=== PATIENT | female | born 1960 | race Asian ===

== ENCOUNTER 2021-09-24 18:40 | Emergency (ER) | payer BC ==
[2021-09-24] MEDS ORDERED: BUPIVACAINE 0.5% PF 10 ML VIAL SUBQ STA (19:16)
[2021-09-24] MEDS ORDERED: TETANUS/DIPHTHERIA/PERTUSSIS 0.5 ML SYRINGE IM ONE (20:38)
[2021-09-24] MEDS ORDERED: IBUPROFEN 600 MG TABLET PO STA (20:39)
[2021-09-24] MEDS ORDERED: cephALEXin 250 MG CAPSULE PO STA (20:39)
--- NOTE | 2021-09-24 20:43 | ED Physician Documentation ---
History of Present Illness - Stated complaint Stated Complaint: R INDEX FINGER CUT - Chief complaint Chief Complaint: Laceration - History obtained from History obtained from: Patient - History of Present Illness Timing: Today Pain level max: 5 Pain level now: 3 - Additonal information Additional information: 61-year-old female presents with a injury to the right index finger. She was attempting to remove a stick from a lawnmower blade when the blade hit her in the finger. Complains of bleeding. Unknown last tetanus shot. Nothing makes it better or worse. Not on blood thinners. Review of Systems Constitutional: denies: Fever, Chills GI: denies: Vomiting, Diarrhea Skin: denies: Rash Neurologic: denies: Headache PD PAST MEDICAL HISTORY - Past Medical History Past Medical History: Yes Cardiovascular: Hypertension - Past Surgical History Past Surgical History: No - Present Medications Home Medications: Ambulatory Orders Medication Instructions Recorded Confirmed Lisinopril [Zestril] 2.5 mg PO DAILY 09/24/21 09/24/21 amLODIPine [Norvasc] 2.5 mg PO DAILY 09/24/21 09/24/21 cephALEXin [Keflex] 500 mg PO Q6H #28 cap 09/24/21 - Allergies Allergies/Adverse Reactions: Allergies Allergy/AdvReac Type Severity Reaction Status Date / Time No Known Drug Allergies Allergy Verified 09/24/21 18:46 - Social History Does the pt smoke?: No Smoking Status: Never smoker Does the pt drink ETOH?: No Does the pt have substance abuse?: No - Immunizations Immunizations are current?: No Immunizations: TDAP >10years/unknown PD ED PE NORMAL - Vitals Vital signs reviewed: Yes - General General: Alert and oriented X 3, No acute distress - HEENT HEENT: Moist mucous membranes, Pharynx benign - Neck Neck: Supple, no meningeal sign - Derm Derm: Warm and dry - Extremities Extremities: Other (r index finger - Partial nail avulsion. No discrete laceration. Small subungual hematoma. Neurovascular intact.) - Neuro Neuro: Alert and oriented X 3 - Psych Psych: Normal mood, Normal affect Results - Vitals Vitals: Vital Signs - 24 hr 09/24/21 09/24/21 18:47 21:05 Temperature 36.9 C 37.1 C Heart Rate 78 70 Respiratory 18 14 Rate Blood Pressure 192/94 H 110/63 O2 Saturation 100 99 Oxygen O2 Source Room air Procedures - Laceration (location) Right index finger Length in cm: 1 Wound type: Linear Neurovascular status: Sensory intact, Motor intact, Vascular intact Anesthesia: Marcaine 0.5% (Digital block) Wound preparation: Chlorhexadine, Irrigated copiously NS Skin layer closure: Nylon, Interrupted, Size #-0 - enter number (4), Sutures - enter # (1) Other: Patient tolerated well, No complications, Neurovascular intact, Dressing applied, Tetanus booster given PD MEDICAL DECISION MAKING - ED course Complexity details: reviewed results, re-evaluated patient, considered differential, d/w patient ED course: 61-year-old female with a partial nail avulsion. The nail is still well adhered to the nailbed. She does not want the nail removed. Therefore the nail was trephinated with electrocautery and a suture was used to readhere the nail to the nail fold. Patient was given Keflex, Tdap given. Warnings of infection given at bedside as this would be a high risk injury. Neurovascular intact. Patient counseled regarding signs and symptoms for which I believe and urgent re-evaluation would be necessary. Patient with good understanding of and agreement to plan and is comfortable going home at this time This document was made in part using voice recognition software. While efforts are made to proofread this document, sound alike and grammatical errors may occur. Departure - Departure Disposition: 01 Home, Self Care Clinical Impression: Nail avulsion, finger Qualifiers: Encounter type: initial encounter Qualified Code(s): S61.309A - Unspecified open wound of unspecified finger with damage to nail, initial encounter Condition: Good Instructions: ED Laceration Hand Follow-Up: your,doctor in 5-7 days for recheck [Other] Prescriptions: cephALEXin [Keflex] 500 mg PO Q6H #28 cap Comments: You can use Motrin or Tylenol as needed for pain. You were given a tetanus shot today. The stitches in the finger should be removed in about 7 days with your doctor. If they are unable to see you, return here. Return here for worsening symptoms including increasing pain, redness, swelling or drainage from the wound. You can soak the fingernail in warm water 2-3 times a day for few minutes at a time to help promote drainage as well. Return if you worsen. Your prescriptions were sent to [facility]. Take all antibiotics until gone. You can wear the splint as needed for comfort. Forms: Activity restrictions Discharge Date/Time: 09/24/21 21:05
[2021-09-24 21:07] VITALS: BP 110/63
== END 2021-09-24 21:05 | disposition home or self-care (01) ==
LOC: ED 18:40
DX: S61.310A Laceration without foreign body of right index finger with damage to nail, initial encounter (principal); W45.8XXA Other foreign body or object entering through skin, initial encounter; Y93.H9 Activity, other involving exterior property and land maintenance, building and construction
CPT/HCPCS: 12001; 90471; 90715; 99283; A9270